=== PATIENT | female | born 1980 | race African-American/Black ===

== ENCOUNTER 2016-12-10 13:10 | Emergency (ER) | payer SELFPAY ==
[~2016-12-10] VITALS: Ht 162.6 cm; Wt 87.0 kg
[~2016-12-10 13:10] MED LIST: AMOXICILLIN875 MG OR; CIPRO500 MG OR; CIPRO500 MG PO; CIPROFLOXACN500 MG PO; FLAGYL500 MG OR; FLEXERIL5 M1 PO; KETOROLAC60 MG/2 ML IJ; MELOXICAM15 MG PO; PRAVASTATIN10 MG PO; PRAVASTATIN20 MG PO; PYRIDIUM200 MG PO; ROCEPHIN 1 GM1 GM IM; TRI-SPRINTEC OR; TRI-SPRINTEC PO; ZOFRAN ODT4 MG PO
[2016-12-10 14:36] LABS: HEMATOCRIT 36.4 % (37.0-47.0); HEMOGLOBIN 11.6 g/dl (12.0-16.0); IMMATURE GRANULOCYTES 0.3 % (0.0-1.0); MEAN CELL VOLUME 82.9 fL CALC (80.0-100.0); MEAN CORPUSCULAR HGB 26.4 pG CALC (26.0-32.0); MEAN CORPUSCULAR HGB CONC 31.9 g/L CALC (32.0-36.0); NEUT# 5.43 thou/uL (2.00-7.15); RED BLOOD COUNT 4.39 mill/uL (4.20-5.60); RED CELL DISTRI WIDTH 12.8 % (11.5-15.5)
[2016-12-10 14:54] LABS: ALBUMIN 4.6 g/dL (3.2-5.0); ALKALINE PHOSPHATASE 56 u/l (38-126); ANION GAP 16 (6-22 (CALC)); BILIRUBIN, TOTAL 0.3 mg/dL (0.0-1.4); BUN 14 mg/dL (7-17); BUN/CREATININE RATIO 21 (12-20 (CALC)); CALCIUM 9.8 mg/dL (8.4-10.2); CARBON DIOXIDE 24 mmol/l (22-30); CHLORIDE 105 mmol/l (95-108); CREATININE 0.7 mg/dL (0.5-1.0); GFR > 60 ML/MIN (>=60 (CALC)); GFR FOR AFR.AMER. > 60 ML/MIN (>=60 (CALC)); GLUCOSE 105 mg/dL (65-105); LIPASE 54 u/l (23-300); POTASSIUM 4.1 mmol/l (3.5-5.1); SGOT/AST 21 u/l (14-36); SGPT/ALT 23 u/l (9-52); SODIUM 140 mmol/l (137-146); TOTAL PROTEIN 8.6 g/dL (6.3-8.2)
[2016-12-10 14:55] LABS: HCG SERUM/URINE (NEG/POS) NEGATIVE (NEGATIVE); INFLUENZA A NONE DETECTED (NONE DETECT); INFLUENZA B NONE DETECTED (NONE DETECT)
[2016-12-10 15:08] LABS: MYOGLOBIN 32 ng/mL (0 - 62)
[2016-12-10 15:22] LABS: URINE BILIRUBIN - DIPSTICK NEGATIVE (NEGATIVE); URINE BLOOD DIPSTICK TRACE-INTACT (NEGATIVE); URINE CLARITY CLEAR; URINE COLOR YELLOW; URINE GLUCOSE - DIPSTICK NEGATIVE (NEGATIVE); URINE KETONE NEGATIVE (NEGATIVE); URINE LEUK ESTERASE NEGATIVE (Negative); URINE NITRITE - DIPSTICK NEGATIVE (Negative); URINE PH 7.5 (4.5-8.0); URINE PROTEIN - DIPSTICK TRACE mg/dL (NEG-TRACE); URINE UROBILINOGEN - DIPSTICK 0.2 E.U./dL (0.2)
[2016-12-10] MEDS ORDERED: ANTIVERT12.5 MG PO (16:47)
[2016-12-10 17:05] VITALS: BP 121/74
== END 2016-12-10 17:05 | disposition home or self-care (01) | DRG 149 ==
LOC: ED 13:10
PROVIDERS: Emergency Medicine
DX: R42 Dizziness and giddiness (principal); R11.2 Nausea with vomiting, unspecified; R19.7 Diarrhea, unspecified

== ENCOUNTER 2018-01-05 01:06 | Emergency (ER) | payer MEDICAID ==
[~2018-01-05] VITALS: Ht 162.6 cm; Wt 71.2 kg
[~2018-01-05 01:06] MED LIST changes: +ANTIVERT12.5 MG PO
[2018-01-05 02:15] LABS: URINE BILIRUBIN - DIPSTICK NEGATIVE (NEGATIVE); URINE BLOOD DIPSTICK NEGATIVE (NEGATIVE); URINE COLOR YELLOW; URINE GLUCOSE - DIPSTICK NEGATIVE (NEGATIVE); URINE KETONE NEGATIVE (NEGATIVE); URINE LEUK ESTERASE NEGATIVE (NEGATIVE); URINE NITRITE - DIPSTICK NEGATIVE (Negative); URINE PH 6.5 (4.5-8.0); URINE PROTEIN - DIPSTICK NEGATIVE (NEG-TRACE); URINE SPECIFIC GRAVITY 1.025; URINE UROBILINOGEN - DIPSTICK 0.2 E.U./dL (0.2)
[2018-01-05 02:16] LABS: URINE CLARITY HAZY
[2018-01-05] MEDS ORDERED: PYRIDIUM200 MG PO (03:16)
[2018-01-05 03:30] VITALS: BP 114/68
== END 2018-01-05 03:37 | disposition home or self-care (01) | DRG 696 ==
LOC: ED 01:06
PROVIDERS: Emergency Medicine
DX: R30.0 Dysuria (principal)

== ENCOUNTER 2018-08-28 15:30 | Emergency (ER) | payer OTHER ==
[~2018-08-28] VITALS: Ht 162.6 cm; Wt 84.0 kg
[2018-08-28 16:20] LABS: HEMATOCRIT 32.6 % (37.0-47.0); HEMOGLOBIN 10.2 g/dl (12.0-16.0); IMMATURE GRANULOCYTES 0.4 % (0.0-5.0); MEAN CELL VOLUME 86.7 fL CALC (80.0-100.0); MEAN CORPUSCULAR HGB 27.1 pG CALC (26.0-32.0); MEAN CORPUSCULAR HGB CONC 31.3 g/L CALC (32.0-36.0); NEUT# 3.37 thou/uL (2.00-7.15); RED BLOOD COUNT 3.76 mill/uL (4.20-5.60); RED CELL DISTRI WIDTH 14.4 % (11.5-15.5); URINE BILIRUBIN - DIPSTICK NEGATIVE (NEGATIVE); URINE BLOOD DIPSTICK LARGE (NEGATIVE); URINE COLOR YELLOW; URINE GLUCOSE - DIPSTICK NEGATIVE (NEGATIVE); URINE KETONE TRACE mg/dL (NEGATIVE); URINE NITRITE - DIPSTICK NEGATIVE (Negative); URINE PH 5.5 (4.5-8.0); URINE PROTEIN - DIPSTICK 30 mg/dL (NEG-TRACE); URINE SPECIFIC GRAVITY 1.025
[2018-08-28 16:23] LABS: URINE LEUK ESTERASE MODERATE (NEGATIVE)
[2018-08-28 17:08] LABS: ALBUMIN 3.4 g/dL (3.2-5.0); ALKALINE PHOSPHATASE 78 u/l (38-126); ANION GAP 11 (6-22 (CALC)); BILIRUBIN, TOTAL 0.2 mg/dL (0.0-1.4); BUN 15 mg/dL (7-17); BUN/CREATININE RATIO 21 (12-20 (CALC)); CARBON DIOXIDE 25 mmol/l (22-30); CHLORIDE 106 mmol/l (95-108); CREATININE 0.7 mg/dL (0.5-1.0); GFR > 60 ML/MIN (>=60 (CALC)); GFR FOR AFR.AMER. > 60 ML/MIN (>=60 (CALC)); POTASSIUM 4.3 mmol/l (3.5-5.1); SGOT/AST 22 u/l (14-36); SODIUM 138 mmol/l (137-146); TOTAL PROTEIN 6.7 g/dL (6.3-8.2)
[2018-08-28 17:21] LABS: URINE RBC TNTC RBC/hpf (0-5); URINE SQUAMOUS EPITHELIAL CELL FEW EPI/hpf (0-FEW); URINE WBC 20-50 WBC/hpf (0-5)
[2018-08-28 17:22] LABS: URINE BACTERIA RARE hpf
[2018-08-28] MEDS ORDERED: CEPHALEXIN500 M1 PO (17:34)
[2018-08-28 18:10] VITALS: BP 141/76
== END 2018-08-28 18:10 | disposition home or self-care (01) ==
LOC: ED 15:30
PROVIDERS: Emergency Medicine
DX: O86.21 Infection of kidney following delivery (principal); M54.41 Lumbago with sciatica, right side; R10.30 Lower abdominal pain, unspecified

== ENCOUNTER 2022-07-28 00:57 | Emergency (ER) | payer MEDICAID ==
[~2022-07-28] VITALS: Ht 162.6 cm; Wt 89.5 kg
[~2022-07-28 00:57] MED LIST changes: +CEPHALEXIN500 M1 PO
[2022-07-28 01:10] VITALS: BP 135/83
[2022-07-28 01:15] VITALS: BP 121/80
[2022-07-28 01:49] LABS: HEMATOCRIT 34.7 % (37.0-47.0); HEMOGLOBIN 11.1 g/dl (12.0-16.0); IMMATURE GRANULOCYTES 0.7 % (0.0-5.0); NEUT# 3.62 thou/uL (2.00-7.15); RED BLOOD COUNT 4.11 mill/uL (4.20-5.60); RED CELL DISTRI WIDTH 13.5 % (11.5-15.5)
[2022-07-28 01:50] LABS: MEAN CELL VOLUME 84.4 fL CALC (80.0-100.0)
[2022-07-28 02:01] LABS: ALKALINE PHOSPHATASE 72 u/l (38-126); ANION GAP 14 (6-22 (CALC)); BUN 21 mg/dL (7-17); BUN/CREATININE RATIO 28 (12-20 (CALC)); CARBON DIOXIDE 21 mmol/l (22-30); CHLORIDE 104 mmol/l (95-108); CREATININE 0.7 mg/dL (0.5-1.0); GFR FOR AFR.AMER. > 60 ML/MIN (>=60 (CALC)); GFR OTHER RACES > 60 ML/MIN (>=60 (CALC)); POTASSIUM 3.8 mmol/l (3.5-5.1); SGOT/AST 27 u/l (14-36); SODIUM 135 mmol/l (137-146)
[2022-07-28 02:11] LABS: ALBUMIN 4.4 g/dL (3.2-5.0); BILIRUBIN, TOTAL 0.3 mg/dL (0.0-1.4); TOTAL PROTEIN 8.3 g/dL (6.3-8.2)
[2022-07-28] MEDS ORDERED: IBUPROFEN200 MG PO (03:54)
[2022-07-28 04:03] VITALS: BP 135/83
== END 2022-07-28 04:03 | disposition home or self-care (01) ==
LOC: ED 00:57
PROVIDERS: Emergency Medicine
DX: O92.79 Other disorders of lactation (principal)

== ENCOUNTER 2022-09-18 23:52 | Emergency (ER) | payer MEDICAID ==
[~2022-09-18] VITALS: Ht 157.5 cm; Wt 86.0 kg
[~2022-09-18 23:52] MED LIST changes: +IBUPROFEN200 MG PO
[2022-09-19] MEDS ORDERED: DIPHENHYDRAM50 M2 PO (00:51)
[2022-09-19] MEDS ORDERED: PEPCID20 MG PO (00:51)
[2022-09-19] MEDS ORDERED: MEDDOSEPAK PO (00:51)
[2022-09-19] MEDS ORDERED: HYDROCORT2.5 % TOP (00:51)
[2022-09-19 01:42] VITALS: BP 133/74
== END 2022-09-19 01:42 | disposition home or self-care (01) ==
LOC: ED 23:52
DX: L25.9 Unspecified contact dermatitis, unspecified cause (principal)

== ENCOUNTER 2024-10-01 07:40 | Emergency (ER) | payer OTHER ==
[~2024-10-01] VITALS: Ht 157.5 cm; Wt 90.7 kg
[~2024-10-01 07:40] MED LIST changes: +DIPHENHYDRAM50 M2 PO; +HYDROCORT2.5 % TOP; +MEDDOSEPAK PO; +PEPCID20 MG PO
[2024-10-01 07:54] VITALS: BP 100/62
[2024-10-01 08:00] VITALS: BP 111/67
[2024-10-01 08:15] VITALS: BP 98/57
[2024-10-01 08:30] VITALS: BP 114/71
[2024-10-01 08:45] VITALS: BP 108/69
[2024-10-01 08:49] VITALS: BP 108/69
== END 2024-10-01 08:59 | disposition home or self-care (01) | DRG 195 ==
LOC: ED 07:40
DX: J10.1 Influenza due to other identified influenza virus with other respiratory manifestations (principal); Z20.822 Contact with and (suspected) exposure to COVID-19